=== PATIENT | female | born 1950 | race Caucasian/White ===

== ENCOUNTER → 2016-07-25 | Day surgery (SDC) | payer MEDICARE ==
[~2016-07-25] MED LIST: HYDR25TA9 PO; HYDROmorphone 2 MG/ML VIAL IV PRN; IV RINGERS,LACTATED 1000ML 1,000 ML IV SCH; LACT1TAB6 PO; LIDOCAINE 1% 1 ML SYRINGE. ID PRN; LIDOCAINE 2% PF Vial for OR 5 ML VIAL. ONE; METF500T4 PO; METO25TA2 PO; MORPHINE SULFATE 2 MG/ML DISP.SYRIN. IV PRN; MULT-658 PO; OMEP40CA5 PO; ONDANSETRON PF 4 MG/2 ML VIAL. IV PRN; PROCHLORPERAZINE 10 MG/2 ML VIAL. IV PRN; PROPOFOL 60 ML IV ONE; SIMV10TA3 PO; fentaNYL PF VIAL 100 MCG/2 ML VIAL IV PRN
[2016-07-25 10:24] VITALS: BP 158/64
--- NOTE | 2016-07-26 17:31 | PATHOLOGY ---
PATHOLOGY REPORT * * * * * * * * FINAL DIAGNOSIS: A. Small bowel biopsy: - No significant pathologic abnormalities. B. Gastric biopsy, antrum: - Chronic gastritis, mild. C. Esophageal biopsy: - Segments of mildly hyperplastic squamous esophageal mucosa and gastric mucosa showing mild chronic inflammation, consistent with reflux. D. Colon biopsy, sigmoid colon polyp: - Hyperplastic polyp showing mild acute and chronic inflammation. COMMENT: Sections of the duodenal biopsy reveal segments of duodenal and small intestine mucosa. Where best oriented, the mucosal villi appear normal. There are no sprue-like changes or significant inflammatory changes. Sections of the gastric antral biopsy show congestion and mild chronic inflammation. An immunoperoxidase stain for Helicobacter is obtained. There are no Helicobacter organisms identified. Sections of the esophageal biopsy reveal segments of mildly hyperplastic squamous esophageal mucosa and a single segment of gastric mucosa showing congestion and mild chronic inflammation. The findings are consistent with reflux. There is no evidence of Alvarez's change, dysplasia, or malignancy. Sections of the sigmoid colon biopsy reveal a hyperplastic polyp. There are no adenomatous changes or evidence of malignancy. Special stain performed: Immunoperoxidase stain for Helicobacter on B1. REPORT ELECTRONICALLY SIGNED BY: Jim Low M.D. DATE/TIME: 07/26/2016 17:29 * * * * * * * * GROSS PATHOLOGY: A. Received in formalin labeled "small bowel biopsy" are three segments of brownish mucosa measuring 2 mm each. These are submitted entirely in a single tissue bag in A1. B. Received in formalin labeled "gastric antrum biopsy" is a single segment of brownish mucosa measuring 2-3 mm in greatest dimension. It is wrapped in a tissue bag and submitted entirely in B1. C. Received in formalin labeled "esophageal biopsy" are three small fragments of brownish mucosa measuring 2 mm each. These are placed in a tissue bag and submitted entirely in cassette C1. D. Received in formalin labeled "sigmoid colon polyp biopsy" are two small segments of brownish mucosa measuring 2 mm in greatest dimension each. These are placed in a tissue bag and submitted in cassette D1. (SWK:csd; d/t: 07/25-07/2016) INITIAL CPT CODE(S): A; 61274 B; 61113, 79735, 81118 C; 85649 D; 83936 Professional services performed by [facility] [id number] [place] [address] Technical services performed by [facility] at [address] [place] [address], [address], [place] [address]. SPECIMEN(S) RECEIVED: A.Small bowel biopsy B.Gastric antrum biopsy C.Distal esophageal biopsy D.Sigmoid colon polyp CLINICAL HISTORY: History of Alvarez's, gastritis, screening PATIENT: LEVAR MARTINEZ /AGE: 406/25/1950 (Age: 66) PATIENT #: [id number] ALT CASE #: SPECIMEN COLLECTION DATE: 07/25/2016 SPECIMEN RECEIVED DATE: 07/25/2016 [facility] - [id number] [place] [address] - PHONE: [phone] * * * END OF REPORT * * *
== END | disposition home or self-care (01) ==
LOC: ENDOS 07:57
PROVIDERS: ATTEND Internal Medicine Gastroenterology
DX: Z12.11 Encounter for screening for malignant neoplasm of colon (principal); K64.0 First degree hemorrhoids; D12.5 Benign neoplasm of sigmoid colon; K57.30 Diverticulosis of large intestine without perforation or abscess without bleeding; K21.0 Gastro-esophageal reflux disease with esophagitis; K22.70 Barrett's esophagus without dysplasia; E78.00 Pure hypercholesterolemia, unspecified; E66.9 Obesity, unspecified; I10 Essential (primary) hypertension
CPT/HCPCS: 43239; 45380; J2704; 88305; 88342; G0641